=== PATIENT | male | born 1955 | race Caucasian/White ===

== ENCOUNTER 2016-04-26 11:40 | Inpatient (IN) | payer SELFPAY ==
[~2016-04-26] VITALS: Ht 185.4 cm; Wt 101.8 kg
[2016-04-26 13:46] LABS: Basophils # (auto) 0 uL; Basophils % (auto) 0.2 % (0.0-2.0); Eosinophils # (auto) 0.2 uL; Eosinophils % (auto) 1.1 % (0.0-7.0); Hematocrit 47.8 % (41.0-53.0); Hemoglobin 15.6 g/dL (13.5-17.5); Lymphocytes # (auto) 2.6 uL; Lymphocytes % (auto) 13.5 % (10.0-50.0); Mean Corpuscular Hemoglobin 29.2 pg (28.0-32.0); Mean Corpuscular Hgb Conc. 32.7 g/dL (32.0-36.0); Mean Corpuscular Volume 89.3 fL (80.0-100.0); Mean Platelet Volume 7.8 fL (7.4-10.4); Monocytes # (auto) 0.6 uL; Monocytes % (auto) 3.1 % (0.0-12.0); Neutrophils # (auto) 15.6 uL; Neutrophils % (auto) 82.1 % (37.0-80.0); Platelet Count (auto) 449 10^3/uL (140-450); Red Cell Distribution Width 14.5 % (11.6-16.0)
[2016-04-26 14:09] LABS: Albumin 4.3 g/dL (3.4-5.0); BUN/Creatinine Ratio 21.8; Calcium 8.2 mg/dL (8.5-10.1); Potassium 4.3 mmol/L (3.5-5.1)
[2016-04-26 14:11] LABS: Bilirubin, Total 0.8 mg/dL (0.2-1.0); Total Protein 7.3 g/dL (6.4-8.2)
[2016-04-26] MEDS ORDERED: ONDANSETRON HCL 4 MG/2 ML VIAL IV ONE (19:30)
[2016-04-26] MEDS ORDERED: SODIUM CHLORIDE 0.9% 1,000 ML IV ONE (19:30)
[2016-04-26] MEDS ORDERED: HYDROmorphone HCL 2 MG/ML VL IV ONE (19:30)
[2016-04-26 23:13] LABS: Urine RBC None Seen /hpf (0 - 3)
[2016-04-26] MEDS ORDERED: ONDANSETRON HCL 4 MG/2 ML VIAL IV PRN (23:30)
[2016-04-26] MEDS ORDERED: cefTRIAXone 1GM/50ML D5W 50 ML IV ONE (23:30)
[2016-04-26] MEDS ORDERED: TEMAZEPAM 15 MG CAP PO PRN (23:30)
[2016-04-26] MEDS ORDERED: ACETAMINOPHEN 325 MG TAB PO PRN (23:30)
[2016-04-26] MEDS ORDERED: metroNIDAZOLE 500MG/100ML 100 ML IV ONE (23:30)
[2016-04-26 23:37] LABS: Urine Bilirubin Negative (Negative); Urine Blood Negative /uL (Negative); Urine Color Yellow (Yellow); Urine Glucose Normal (Normal); Urine Ketone Negative (Negative); Urine Mucus FEW (None Seen); Urine Nitrite Negative (Negative); Urine Urobilinogen Normal (Negative); Urine pH 5.5 (5.0-8.0)
[2016-04-27] VITALS (9 sets, daily range): BP systolic 150–180; BP diastolic 87–116
[2016-04-27] MEDS: MORPHINE SULF INJ 2 MG/ML SYRINGE 1ML IV PRN ×2 (01:40→10:25)
[2016-04-27 05:19] LABS: Basophils # (auto) 0.1 uL; Basophils % (auto) 0.4 % (0.0-2.0); Eosinophils # (auto) 0.2 uL; Eosinophils % (auto) 1.7 % (0.0-7.0); Hematocrit 43.8 % (41.0-53.0); Hemoglobin 14.4 g/dL (13.5-17.5); Lymphocytes # (auto) 2.7 uL; Lymphocytes % (auto) 22.2 % (10.0-50.0); Mean Corpuscular Hemoglobin 29.3 pg (28.0-32.0); Mean Corpuscular Hgb Conc. 32.8 g/dL (32.0-36.0); Mean Corpuscular Volume 89.3 fL (80.0-100.0); Mean Platelet Volume 7.8 fL (7.4-10.4); Monocytes # (auto) 0.7 uL; Monocytes % (auto) 5.5 % (0.0-12.0); Neutrophils # (auto) 8.6 uL; Neutrophils % (auto) 70.2 % (37.0-80.0); Platelet Count (auto) 352 10^3/uL (140-450); Red Cell Distribution Width 14.3 % (11.6-16.0); White Blood Cell 12.3 10^3/uL (4.4-10.8)
[2016-04-27 05:51] LABS: Albumin 3.6 g/dL (3.4-5.0); Calcium 7.6 mg/dL (8.5-10.1); Potassium 4.3 mmol/L (3.5-5.1)
[2016-04-27 05:54] LABS: Bilirubin, Total 0.7 mg/dL (0.2-1.0); Total Protein 6.2 g/dL (6.4-8.2)
[2016-04-27] MEDS: HYDROcodone-ACET 5/325MG TAB PO PRN (06:12)
[2016-04-27] MEDS: metroNIDAZOLE 500MG/100ML 100 ML IV SCH ×3 (06:12→21:46)
[2016-04-27] MEDS: FAMOTIDINE 20 MG TAB PO SCH ×2 (10:24→21:46)
[2016-04-27] MEDS: ENOXAPARIN SOD 40 MG/0.4 ML SYRINGE SC SCH (10:24)
[2016-04-27] MEDS: cefTRIAXone 1GM/50ML D5W 50 ML IV SCH (10:25)
[2016-04-27] MEDS ORDERED: amLODIPine BESYLATE 5 MG TAB PO ONE (13:45)
[2016-04-27] MEDS: cloNIDine HCL 0.1 MG TAB PO PRN (17:47)
[2016-04-27] MEDS ORDERED: ENALAPRILAT 1.25 MG/ML-1ML VIAL IV PRN (19:30)
[2016-04-28 05:00] VITALS: BP 177/94
[2016-04-28] MEDS: HYDROcodone-ACET 5/325MG TAB PO PRN ×4 (05:19→21:42)
[2016-04-28] MEDS: metroNIDAZOLE 500MG/100ML 100 ML IV SCH ×3 (05:30→21:41)
[2016-04-28] MEDS: cloNIDine HCL 0.1 MG TAB PO PRN ×2 (06:14→14:03)
[2016-04-28 08:00] VITALS: BP 151/98
[2016-04-28 09:00] VITALS: BP 151/98
[2016-04-28] MEDS ORDERED: amLODIPine BESYLATE 5 MG TAB PO SCH (10:00)
[2016-04-28] MEDS ORDERED: amLODIPine BESYLATE 5 MG TAB PO ONE (10:15)
[2016-04-28] MEDS: FAMOTIDINE 20 MG TAB PO SCH ×2 (10:38→21:41)
[2016-04-28] MEDS: cefTRIAXone 1GM/50ML D5W 50 ML IV SCH (10:38)
[2016-04-28] MEDS: ENOXAPARIN SOD 40 MG/0.4 ML SYRINGE SC SCH (10:39)
[2016-04-28 13:00] VITALS: BP 169/106
[2016-04-28 17:00] VITALS: BP 157/97
[2016-04-28 22:00] VITALS: BP 149/98
[2016-04-29 05:00] VITALS: BP 137/116
[2016-04-29] MEDS: HYDROcodone-ACET 5/325MG TAB PO PRN ×4 (05:28→20:53)
[2016-04-29] MEDS: metroNIDAZOLE 500MG/100ML 100 ML IV SCH ×3 (05:30→21:38)
[2016-04-29 06:35] LABS: Basophils # (auto) 0 uL; Basophils % (auto) 0.3 % (0.0-2.0); Eosinophils # (auto) 0.2 uL; Eosinophils % (auto) 2.1 % (0.0-7.0); Hematocrit 46.8 % (41.0-53.0); Hemoglobin 15.6 g/dL (13.5-17.5); Lymphocytes # (auto) 2.1 uL; Lymphocytes % (auto) 18.6 % (10.0-50.0); Mean Corpuscular Hemoglobin 29.7 pg (28.0-32.0); Mean Corpuscular Hgb Conc. 33.4 g/dL (32.0-36.0); Mean Platelet Volume 7.7 fL (7.4-10.4); Monocytes # (auto) 0.7 uL; Monocytes % (auto) 6.5 % (0.0-12.0); Neutrophils # (auto) 8.1 uL; Neutrophils % (auto) 72.5 % (37.0-80.0); Platelet Count (auto) 375 10^3/uL (140-450); White Blood Cell 11.1 10^3/uL (4.4-10.8)
[2016-04-29 07:21] LABS: BUN/Creatinine Ratio 21.7; Calcium 8.1 mg/dL (8.5-10.1); Potassium 3.9 mmol/L (3.5-5.1)
[2016-04-29 09:00] VITALS: BP 150/106
[2016-04-29] MEDS: cefTRIAXone 1GM/50ML D5W 50 ML IV SCH (09:03)
[2016-04-29] MEDS ORDERED: GASTROGRAFIN 30 ML SOL ONE ×2 (10:04→10:30)
[2016-04-29] MEDS: LISINOPRIL 5 MG TAB PO SCH (10:20)
[2016-04-29] MEDS: ENOXAPARIN SOD 40 MG/0.4 ML SYRINGE SC SCH (10:22)
[2016-04-29] MEDS: FAMOTIDINE 20 MG TAB PO SCH ×2 (10:23→21:38)
[2016-04-29] MEDS: amLODIPine BESYLATE 5 MG TAB PO SCH (10:25)
[2016-04-29] MEDS: cloNIDine HCL 0.1 MG TAB PO PRN (12:07)
[2016-04-29 13:08] VITALS: BP 158/100
[2016-04-29 17:00] VITALS: BP 145/77
[2016-04-29 22:00] VITALS: BP 134/89
[2016-04-30 04:57] VITALS: BP 127/77
[2016-04-30] MEDS: metroNIDAZOLE 500MG/100ML 100 ML IV SCH ×2 (05:35→14:22)
[2016-04-30 05:58] LABS: Basophils # (auto) 0 uL; Basophils % (auto) 0.4 % (0.0-2.0); Eosinophils # (auto) 0.2 uL; Eosinophils % (auto) 2.1 % (0.0-7.0); Hematocrit 45.5 % (41.0-53.0); Hemoglobin 15.4 g/dL (13.5-17.5); Lymphocytes % (auto) 20.1 % (10.0-50.0); Mean Corpuscular Hemoglobin 29.8 pg (28.0-32.0); Mean Corpuscular Hgb Conc. 33.8 g/dL (32.0-36.0); Mean Corpuscular Volume 88.2 fL (80.0-100.0); Mean Platelet Volume 7.8 fL (7.4-10.4); Monocytes # (auto) 0.7 uL; Monocytes % (auto) 7.3 % (0.0-12.0); Neutrophils # (auto) 7.1 uL; Neutrophils % (auto) 70.1 % (37.0-80.0); Platelet Count (auto) 381 10^3/uL (140-450); Red Cell Distribution Width 14.4 % (11.6-16.0); White Blood Cell 10.1 10^3/uL (4.4-10.8)
[2016-04-30 09:15] VITALS: BP 128/98
[2016-04-30] MEDS: cefTRIAXone 1GM/50ML D5W 50 ML IV SCH (11:54)
[2016-04-30] MEDS: LACTULOSE 20Gm/30ML SOLN PO SCH (11:54)
[2016-04-30] MEDS: amLODIPine BESYLATE 5 MG TAB PO SCH (11:55)
[2016-04-30] MEDS: FAMOTIDINE 20 MG TAB PO SCH ×2 (11:55→21:32)
[2016-04-30] MEDS: ENOXAPARIN SOD 40 MG/0.4 ML SYRINGE SC SCH (11:56)
[2016-04-30] MEDS: LISINOPRIL 5 MG TAB PO SCH (11:56)
[2016-04-30 12:34] VITALS: BP 146/112
[2016-04-30 16:48] VITALS: BP 130/92
[2016-04-30] MEDS: metroNIDAZOLE 500 MG TAB PO SCH (21:32)
[2016-04-30] MEDS: CIPROFLOXACIN HCL 500 MG TAB PO SCH (21:32)
[2016-04-30] MEDS: HYDROcodone-ACET 5/325MG TAB PO PRN (21:33)
[2016-04-30 22:00] VITALS: BP 134/97
[2016-05-01 05:00] VITALS: BP 146/97
[2016-05-01] MEDS: metroNIDAZOLE 500 MG TAB PO SCH (05:32)
[2016-05-01] MEDS ORDERED: CIP500T PO (09:20)
[2016-05-01] MEDS ORDERED: MET500T PO (09:20)
[2016-05-01] MEDS ORDERED: AML5T PO (09:20)
[2016-05-01] MEDS ORDERED: LISI-275 PO (09:20)
[2016-05-01] MEDS ORDERED: TRAM50TA2 PO (09:20)
[2016-05-01] MEDS: ENOXAPARIN SOD 40 MG/0.4 ML SYRINGE SC SCH (09:28)
[2016-05-01] MEDS: FAMOTIDINE 20 MG TAB PO SCH (09:28)
[2016-05-01] MEDS: amLODIPine BESYLATE 5 MG TAB PO SCH (09:28)
[2016-05-01] MEDS: CIPROFLOXACIN HCL 500 MG TAB PO SCH (09:28)
[2016-05-01] MEDS: LISINOPRIL 5 MG TAB PO SCH (09:29)
[2016-05-01] MEDS: LACTULOSE 20Gm/30ML SOLN PO SCH (09:34)
[2016-05-01 10:33] VITALS: BP 130/84
[2016-05-01 10:41] VITALS: BP 130/84
== END 2016-05-01 12:00 | disposition home or self-care (01) | DRG 392 ==
LOC: ER 11:57 → OVERFLOW 11:58 → WEST WING 23:44
PROVIDERS: ADMIT Nurse Practitioner; ATTEND Internal Medicine
DX: K57.32 Diverticulitis of large intestine without perforation or abscess without bleeding (principal); R65.10 Systemic inflammatory response syndrome (SIRS) of non-infectious origin without acute organ dysfunction; F12.90 Cannabis use, unspecified, uncomplicated; F17.210 Nicotine dependence, cigarettes, uncomplicated; K40.90 Unilateral inguinal hernia, without obstruction or gangrene, not specified as recurrent; I10 Essential (primary) hypertension; N20.0 Calculus of kidney; E66.01 Morbid (severe) obesity due to excess calories; Z98.890 Other specified postprocedural states; Z68.29 Body mass index [BMI] 29.0-29.9, adult
CPT/HCPCS: 36415; 74176; 80048; 80053; 81001; 83690; 85025; 87040; 93005; 96361; 96374; 96375; G0434; J0696; J2405; J3490

== ENCOUNTER 2016-10-27 13:28 | Inpatient (IN) | payer SELFPAY ==
[~2016-10-27] VITALS: Ht 185.4 cm; Wt 100.0 kg
[~2016-10-27 13:28] MED LIST: AML5T PO; CIP500T PO; LISI-275 PO; MET500T PO; TRAM50TA2 PO
[2016-10-27 14:46] LABS: Basophils # (auto) 0.1 uL; Basophils % (auto) 0.7 % (0.0-2.0); Eosinophils # (auto) 0.3 uL; Eosinophils % (auto) 2.6 % (0.0-7.0); Hemoglobin 16.6 g/dL (13.5-17.5); Lymphocytes # (auto) 1.6 uL; Lymphocytes % (auto) 15.6 % (10.0-50.0); Mean Corpuscular Hemoglobin 30.7 pg (28.0-32.0); Mean Corpuscular Hgb Conc. 33.9 g/dL (32.0-36.0); Mean Corpuscular Volume 90.4 fL (80.0-100.0); Mean Platelet Volume 7.6 fL (6.9-10.8); Monocytes # (auto) 0.3 uL; Monocytes % (auto) 3.3 % (0.0-12.0); Neutrophils # (auto) 7.8 uL; Neutrophils % (auto) 77.8 % (37.0-80.0); Nucleated Red Blood Cells % 0.1 %; Platelet Count (auto) 297 10^3/uL (140-450); Red Cell Distribution Width 13.7 % (11.8-14.3); White Blood Cell 10.1 10^3/uL (4.4-10.8)
[2016-10-27 15:13] LABS: Albumin 4.6 g/dL (3.4-5.0); BUN/Creatinine Ratio 13.3; Calcium 8.4 mg/dL (8.5-10.1); Potassium 3.7 mmol/L (3.5-5.1)
[2016-10-27 15:15] LABS: Bilirubin, Total 1.4 mg/dL (0.2-1.0); Total Protein 7.6 g/dL (6.4-8.2)
[2016-10-27 16:35] LABS: Urine Bilirubin Negative (Negative); Urine Blood Negative /uL (Negative); Urine Color Yellow (Yellow); Urine Glucose TRACE mg/dL (Normal); Urine Ketone 1+ (Negative); Urine Mucus FEW (None Seen); Urine Nitrite Negative (Negative); Urine RBC <1 /hpf (0 - 3); Urine Urobilinogen Normal (Negative); Urine pH 5.5 (5.0-8.0)
[2016-10-27] MEDS ORDERED: SODIUM CHLORIDE 0.9% 1,000 ML IV ONE ×2 (17:02)
[2016-10-27] MEDS ORDERED: metroNIDAZOLE 500MG/100ML 100 ML IV ONE (17:15)
[2016-10-27] MEDS ORDERED: cefTRIAXone 1GM/50ML D5W 50 ML IV ONE (17:15)
[2016-10-27] MEDS ORDERED: MORPHINE SULF INJ 2 MG/ML SYRINGE 1ML IV PRN (17:45)
[2016-10-27] MEDS ORDERED: amLODIPine BESYLATE 5 MG TAB PO ONE (17:45)
[2016-10-27] MEDS ORDERED: ENALAPRILAT 1.25 MG/ML-1ML VIAL IV PRN (17:45)
[2016-10-27] MEDS ORDERED: ONDANSETRON HCL 4 MG/2 ML VIAL IV PRN (17:45)
[2016-10-27] MEDS ORDERED: LISINOPRIL 10 MG TAB PO ONE (17:45)
[2016-10-27] MEDS: SODIUM CHLORIDE 0.9% 1,000 ML IV SCH (18:07)
[2016-10-27] MEDS: HYDROcodone-ACET 5/325MG TAB PO PRN (18:30)
[2016-10-27] MEDS: metroNIDAZOLE 500MG/100ML 100 ML IV SCH (21:07)
[2016-10-27 22:00] VITALS: BP 145/102
[2016-10-28 01:33] VITALS: BP 145/102
[2016-10-28] MEDS: SODIUM CHLORIDE 0.9% 1,000 ML IV SCH ×3 (02:35→23:54)
[2016-10-28] MEDS: HYDROcodone-ACET 5/325MG TAB PO PRN ×3 (03:12→17:29)
[2016-10-28 04:49] VITALS: BP 101/63
[2016-10-28] MEDS: metroNIDAZOLE 500MG/100ML 100 ML IV SCH ×3 (05:19→21:43)
[2016-10-28 08:30] VITALS: BP 125/81
[2016-10-28] MEDS: cefTRIAXone 1GM/50ML D5W 50 ML IV SCH (09:10)
[2016-10-28] MEDS: amLODIPine BESYLATE 5 MG TAB PO SCH (09:28)
[2016-10-28] MEDS: LISINOPRIL 10 MG TAB PO SCH (09:29)
[2016-10-28 12:30] VITALS: BP 126/93
[2016-10-28 16:15] VITALS: BP 101/63
[2016-10-28 21:30] VITALS: BP 123/77
[2016-10-29] VITALS (7 sets, daily range): BP systolic 108–136; BP diastolic 57–95
[2016-10-29] MEDS: metroNIDAZOLE 500MG/100ML 100 ML IV SCH ×3 (04:59→21:52)
[2016-10-29 06:56] LABS: Basophils # (auto) 0.1 uL; Basophils % (auto) 1.1 % (0.0-2.0); Eosinophils # (auto) 0.5 uL; Eosinophils % (auto) 6.8 % (0.0-7.0); Hematocrit 44.8 % (41.0-53.0); Hemoglobin 15.3 g/dL (13.5-17.5); Lymphocytes # (auto) 1.7 uL; Lymphocytes % (auto) 22.1 % (10.0-50.0); Mean Corpuscular Hemoglobin 31.3 pg (28.0-32.0); Mean Corpuscular Hgb Conc. 34.2 g/dL (32.0-36.0); Mean Corpuscular Volume 91.4 fL (80.0-100.0); Mean Platelet Volume 7.6 fL (6.9-10.8); Monocytes # (auto) 0.6 uL; Monocytes % (auto) 7.4 % (0.0-12.0); Neutrophils # (auto) 4.9 uL; Neutrophils % (auto) 62.6 % (37.0-80.0); Platelet Count (auto) 262 10^3/uL (140-450); Red Cell Distribution Width 13.5 % (11.8-14.3); White Blood Cell 7.8 10^3/uL (4.4-10.8)
[2016-10-29 07:24] LABS: BUN/Creatinine Ratio 13.8; Calcium 8.1 mg/dL (8.5-10.1); Potassium 4.3 mmol/L (3.5-5.1)
[2016-10-29] MEDS: HYDROcodone-ACET 5/325MG TAB PO PRN ×3 (07:30→21:00)
[2016-10-29] MEDS: amLODIPine BESYLATE 5 MG TAB PO SCH (09:43)
[2016-10-29] MEDS: LISINOPRIL 10 MG TAB PO SCH (09:44)
[2016-10-29] MEDS: cefTRIAXone 1GM/50ML D5W 50 ML IV SCH (09:45)
[2016-10-29] MEDS: SODIUM CHLORIDE 0.9% 1,000 ML IV SCH ×2 (09:45→19:45)
[2016-10-30 05:00] VITALS: BP 116/72
[2016-10-30] MEDS: metroNIDAZOLE 500MG/100ML 100 ML IV SCH ×2 (05:42→13:44)
[2016-10-30] MEDS: SODIUM CHLORIDE 0.9% 1,000 ML IV SCH ×2 (05:45→15:56)
[2016-10-30] MEDS: HYDROcodone-ACET 5/325MG TAB PO PRN ×3 (08:24→20:38)
[2016-10-30 09:02] VITALS: BP 133/83
[2016-10-30] MEDS: cefTRIAXone 1GM/50ML D5W 50 ML IV SCH (10:39)
[2016-10-30] MEDS: LISINOPRIL 10 MG TAB PO SCH (10:39)
[2016-10-30] MEDS: amLODIPine BESYLATE 5 MG TAB PO SCH (10:40)
[2016-10-30 13:06] VITALS: BP 134/96
[2016-10-30] MEDS ORDERED: LACTULOSE 20Gm/30ML SOLN PO ONE (15:30)
[2016-10-30 17:02] VITALS: BP 128/83
[2016-10-30 20:00] VITALS: BP 114/79
[2016-10-30 22:00] VITALS: BP 114/79
[2016-10-31] MEDS: SODIUM CHLORIDE 0.9% 1,000 ML IV SCH ×3 (01:45→21:37)
[2016-10-31 05:00] VITALS: BP 120/79
[2016-10-31 08:00] VITALS: BP 175/82
[2016-10-31] MEDS: HYDROcodone-ACET 5/325MG TAB PO PRN ×2 (08:28→20:31)
[2016-10-31 08:48] VITALS: BP 125/82
[2016-10-31] MEDS ORDERED: IBUPROFEN 800 MG TAB PO PRN (09:00)
[2016-10-31] MEDS ORDERED: KETOROLAC TROMETH 30 MG/ML 1ML VIAL IV ONE (09:00)
[2016-10-31] MEDS: amLODIPine BESYLATE 5 MG TAB PO SCH (10:43)
[2016-10-31] MEDS: LISINOPRIL 10 MG TAB PO SCH (10:44)
[2016-10-31] MEDS: LEVOFLOXACIN 250 MG TAB PO SCH (10:44)
[2016-10-31 13:00] VITALS: BP 122/73
[2016-10-31 17:00] VITALS: BP 116/80
[2016-10-31 21:54] VITALS: BP 116/86
[2016-11-01 05:29] LABS: Basophils # (auto) 0 uL; Basophils % (auto) 0.5 % (0.0-2.0); Eosinophils # (auto) 0.5 uL; Eosinophils % (auto) 5.7 % (0.0-7.0); Hematocrit 48.7 % (41.0-53.0); Hemoglobin 16.2 g/dL (13.5-17.5); Lymphocytes # (auto) 1.8 uL; Lymphocytes % (auto) 20.7 % (10.0-50.0); Mean Corpuscular Hgb Conc. 33.2 g/dL (32.0-36.0); Mean Corpuscular Volume 93.4 fL (80.0-100.0); Mean Platelet Volume 7.4 fL (6.9-10.8); Monocytes # (auto) 0.7 uL; Monocytes % (auto) 8.2 % (0.0-12.0); Neutrophils # (auto) 5.6 uL; Neutrophils % (auto) 64.9 % (37.0-80.0); Nucleated Red Blood Cells % 0.1 %; Platelet Count (auto) 294 10^3/uL (140-450); Red Cell Distribution Width 13.9 % (11.8-14.3); White Blood Cell 8.6 10^3/uL (4.4-10.8)
[2016-11-01 05:35] VITALS: BP 152/104
[2016-11-01 05:52] LABS: BUN/Creatinine Ratio 21.9; Calcium 8.7 mg/dL (8.5-10.1); Potassium 4.7 mmol/L (3.5-5.1)
[2016-11-01 08:00] VITALS: BP 128/86
[2016-11-01 09:20] VITALS: BP 128/86
[2016-11-01] MEDS: LEVOFLOXACIN 250 MG TAB PO SCH (10:40)
[2016-11-01] MEDS: LISINOPRIL 10 MG TAB PO SCH (10:40)
[2016-11-01] MEDS: amLODIPine BESYLATE 5 MG TAB PO SCH (10:40)
== END 2016-11-01 11:50 | disposition home or self-care (01) | DRG 392 ==
LOC: ER 13:28 → OVERFLOW 13:29 → CENTRAL 19:45
PROVIDERS: ADMIT Internal Medicine; ATTEND Internal Medicine Pulmonary Disease
DX: K57.32 Diverticulitis of large intestine without perforation or abscess without bleeding (principal); J90 Pleural effusion, not elsewhere classified; I10 Essential (primary) hypertension; E66.9 Obesity, unspecified; Z68.28 Body mass index [BMI] 28.0-28.9, adult; K40.90 Unilateral inguinal hernia, without obstruction or gangrene, not specified as recurrent; N40.0 Benign prostatic hyperplasia without lower urinary tract symptoms; I70.90 Unspecified atherosclerosis; F19.10 Other psychoactive substance abuse, uncomplicated; F17.210 Nicotine dependence, cigarettes, uncomplicated; K59.00 Constipation, unspecified
CPT/HCPCS: 36415; 71010; 74176; 80048; 80053; 80307; 81001; 82150; 83036; 83690; 85025; 87040; 93005; 96365; 96368; J0696; J1885; J3490